=== PATIENT | female | born 1995 ===

== ENCOUNTER 2019-04-22 16:17 | Emergency (ER) | payer SELFPAY ==
[2019-04-22] MEDS ORDERED: Ibuprofen 200 MG TAB ONE (17:08)
== END 2019-04-22 17:13 | disposition home or self-care (01) ==
LOC: ERS 16:17
DX: M65.4 Radial styloid tenosynovitis [de Quervain] (principal); F17.210 Nicotine dependence, cigarettes, uncomplicated
CPT/HCPCS: 99283